=== PATIENT | male | born 1945 | race Caucasian/White ===

== ENCOUNTER 2016-12-18 10:41 | Outpatient (CLI) | payer MEDICARE, OTHER ==
[2016-12-18 12:01] LABS: #Basophils 0.1 thou/uL (0.0-0.2); #Eosinphils 0.2 thou/uL (0.0-0.7); #Lymphocytes 1.7 thou/uL (1.20-3.40); #Monocytes 0.7 thou/uL (0.11-0.59); #Neutrophils 6.9 thou/uL (1.40-6.50); %Basophils 0.7 % (0.0-1.0); %Eosinophils 1.6 % (0.0-10.0); %Monocytes 7.4 % (0.0-10.0); Hematocrit 42.6 % (42.0-52.0); Mean Platelet Volume 6.1 fL (7.4-10.4); Red Blood Cell (RBC) Count 4.51 mill/uL (4.70-6.10); White Blood Cell (WBC) Count 9.4 thou/uL (4.8-10.8)
[2016-12-18 12:28] LABS: ALT (SGPT) 40 U/L (0-55); AST (SGOT) 25 U/L (5-34); Alkaline Phosphatase 75 U/L (40-150); Anion Gap 12 mmol/L (10-20); BUN (Urea Nitrogen) 11 mg/dL (8.4-25.7); Bilirubin, Total 0.8 mg/dL (0.2-1.2); Calc. Creatinine Clearance 0 mL/min (70-130); Calcium 9.1 mg/dL (7.8-10.44); Carbon Dioxide 23 mmol/L (23-31); Chloride 109 mmol/L (98-107); Estimated GFR-MDRD 89; Globulin 2.4 g/dL (2.4-3.5); LDL Cholesterol, Calculated 59 mg/dL; Protein, Total 6.3 g/dL (5.8-8.1)
[2016-12-18 12:30] LABS: Hemoglobin A1c 6.5 % (4.0-6.0)
== END 2016-12-18 10:42 ==
LOC: HPCALD 10:41
PROVIDERS: ATTEND Family Medicine
DX: Z12.5 Encounter for screening for malignant neoplasm of prostate (principal); E11.9 Type 2 diabetes mellitus without complications; I10 Essential (primary) hypertension; E78.00 Pure hypercholesterolemia, unspecified
CPT/HCPCS: 36415; 80053; 80061; 83036; 85025; G0103

== ENCOUNTER 2017-06-22 11:49 | Outpatient (CLI) | payer MEDICARE ==
[2017-06-22 12:46] LABS: #Basophils 0.1 thou/uL (0.0-0.2); #Eosinphils 0.2 thou/uL (0.0-0.7); #Lymphocytes 2.6 thou/uL (1.20-3.40); #Monocytes 0.5 thou/uL (0.11-0.59); #Neutrophils 4.6 thou/uL (1.40-6.50); %Basophils 0.9 % (0.0-1.0); %Eosinophils 2.2 % (0.0-10.0); %Lymphocytes 32.2 % (21.0-51.0); %Monocytes 6.7 % (0.0-10.0); Hemoglobin 15.8 g/dL (14.0-18.0); Mean Corpuscular HGB CONC 34.9 g/dL (32.0-36.0); Mean Corpuscular Hemoglobin 32.5 pg (27.0-31.0); Mean Corpuscular Volume 93.1 fl (80.0-94.0); Platelet Count 226 thou/uL (130-400); RBC Distribution Width 11.6 % (11.5-14.5); Red Blood Cell (RBC) Count 4.85 mill/uL (4.70-6.10)
[2017-06-22 12:53] LABS: ALT (SGPT) 34 U/L (8-55); AST (SGOT) 20 U/L (5-34); Albumin 4.2 g/dL (3.4-4.8); Alkaline Phosphatase 81 U/L (40-150); Anion Gap 16 mmol/L (10-20); BUN (Urea Nitrogen) 23 mg/dL (8.4-25.7); Bilirubin, Total 0.8 mg/dL (0.2-1.2); Calc. Creatinine Clearance 0 mL/min (70-130); Calcium 9.5 mg/dL (7.8-10.44); Carbon Dioxide 22 mmol/L (23-31); Cardiac Risk 3.2 (Less than 4.5); Chloride 104 mmol/L (98-107); Cholesterol 107 mg/dl (< 200 Desired); Estimated GFR-MDRD 69; Globulin 2.6 g/dL (2.4-3.5); Glucose 244 mg/dL (83-110); HDL Cholesterol 33 mg/dL (>60 Neg Risk); LDL Cholesterol, Calculated 55 mg/dL; Potassium 4.5 mmol/L (3.5-5.1); Protein, Total 6.8 g/dL (5.8-8.1); Sodium 137 mmol/L (136-145); Triglycerides 95 mg/dL (Less than 150)
[2017-06-22 13:09] LABS: Hemoglobin A1c 8.4 % (4.0-6.0)
== END 2017-06-22 11:50 | disposition home or self-care (01) ==
LOC: HPCALD 11:49
PROVIDERS: ATTEND Family Medicine
DX: E78.5 Hyperlipidemia, unspecified (principal); E11.9 Type 2 diabetes mellitus without complications; I10 Essential (primary) hypertension
CPT/HCPCS: 36415; 80053; 80061; 83036; 85025

== ENCOUNTER 2018-10-23 02:57 | Emergency (ER) | payer MEDICARE ==
[2018-10-23 03:51] LABS: #Basophils 0.1 thou/uL (0.0-0.2); #Eosinphils 0.1 thou/uL (0.0-0.7); #Lymphocytes 2.3 thou/uL (1.20-3.40); #Monocytes 0.6 thou/uL (0.11-0.59); #Neutrophils 6.1 thou/uL (1.40-6.50); %Lymphocytes 24.9 % (21.0-51.0); %Monocytes 6.6 % (0.0-10.0); %Neutrophils 66.5 % (42.0-75.0); Hemoglobin 16.1 g/dL (14.0-18.0); Mean Corpuscular HGB CONC 34.8 g/dL (32.0-36.0); Mean Corpuscular Hemoglobin 31.1 pg (27.0-31.0); Mean Corpuscular Volume 89.4 fL (78.0-98.0); Mean Platelet Volume 6.6 fL (7.4-10.4); Platelet Count 230 thou/uL (130-400); RBC Distribution Width 11.8 % (11.5-14.5); Red Blood Cell (RBC) Count 5.17 mill/uL (4.70-6.10); White Blood Cell (WBC) Count 9.2 thou/uL (4.8-10.8)
[2018-10-23 04:00] LABS: ALT (SGPT) 36 U/L (8-55); AST (SGOT) 24 U/L (5-34); Albumin 4.1 g/dL (3.4-4.8); Alkaline Phosphatase 80 U/L (40-150); Anion Gap 13 mmol/L (10-20); BUN (Urea Nitrogen) 15 mg/dL (8.4-25.7); Bilirubin, Total 0.6 mg/dL (0.2-1.2); Calc. Creatinine Clearance 0 mL/min (70-130); Calcium 9.6 mg/dL (7.8-10.44); Carbon Dioxide 23 mmol/L (23-31); Chloride 106 mmol/L (98-107); Estimated GFR-MDRD 87; Globulin 2.9 g/dL (2.4-3.5); Glucose 163 mg/dL (83-110); Sodium 138 mmol/L (136-145)
--- NOTE | 2018-10-23 08:58 | CT ---
PRELIMINARY REPORT/[facility]/EMERGENTY AFTER-HOURS PROCEDURE CT Head Without Contrast EXAM DATE/TIME: 10/23/2018 3:38 AM CLINICAL HISTORY: 73 years old, male; Signs and symptoms; Altered mental status/memory loss; Patient HX: Woke up confus ed scan x 2 motion TECHNIQUE: Axial computed tomography images of the head/brain without contrast. All CT scans at this facility use at least one of these dose optimization techniques: automated expos ure control; mA and/or kV adjustment per patient size (includes targeted exams where dose is matched to clinical indication); or iterative reconstruction. STROKE PROTOCOL was implemented. COMPARISON: No relevant prior studies available. FINDINGS: Brain: There is no evidence for acute stroke or bleed. There are scattered foci of decreased attenuation in the periventricular and subcortical white matter, nonspecific, but most consistent with chronic small vessel ischemic changes in patient of this age. Dense, 3.0 x 7.3 cm anterior falcine calcification, perhaps meningioma. Ventricles / cisterns / extra-axial spaces: There is no hydrocephalus, midline shift, or acute extra-axial fluid collection. There is no sulcal e ffacement. Sinuses: No findings of acute sinusitis or suspicious sinus mass. Bone: No acute fracture or displacement. Impression: Chronic changes without evidence for acute, intracranial pathology. Dense anterior falcine calcification, perhaps meningioma. Thank you for allowing us to participate in the care of your patient. Dictated and Authenticated by: Ute Puentes MD 10/23/2018 3:52 AM Central Time ([place] & [place]) CT HEAD NONCONTRAST: Date: 10-23-18 Performed on emergency basis at 0340 hours. History: Altered mental status. Memory loss. FINDINGS: Agree with the preliminary report by from [facility]. Chronic type findings. No acute intr acranial abnormalities are demonstrated on noncontrast CT head. Code QA POS: [facility]
== END 2018-10-23 04:30 | disposition home or self-care (01) ==
LOC: BURERS 02:57
DX: G40.909 Epilepsy, unspecified, not intractable, without status epilepticus (principal); G45.9 Transient cerebral ischemic attack, unspecified; E11.9 Type 2 diabetes mellitus without complications; E78.5 Hyperlipidemia, unspecified; I10 Essential (primary) hypertension; Z79.899 Other long term (current) drug therapy; Z79.84 Long term (current) use of oral hypoglycemic drugs
CPT/HCPCS: 70450; 80053; 84146; 84484; 85025

== ENCOUNTER 2019-10-04 11:41 | Emergency (ER) | payer MEDICARE ==
--- NOTE | 2019-10-04 12:33 | RAD ---
RIGHT KNEE 4 VIEWS: DATE: 10/04/2019. FINDINGS: No acute fracture was seen. There are severe degenerative changes in the knee joint with medial join t space narrowing, large osteophytes, and some cartilaginous and meniscal calcifications. The patell ofemoral joints show severe arthritic change as well. There is probably a small joint effusion prese nt. A hair from prior fixation of a femoral fracture is noted. IMPRESSION: Severe degenerative change, but no acute findings, other than perhaps a very small joint effusion. POS: HOME
== END 2019-10-04 12:38 | disposition home or self-care (01) ==
LOC: BURERS 11:41
DX: S80.01XA Contusion of right knee, initial encounter (principal); S60.512A Abrasion of left hand, initial encounter; N40.0 Benign prostatic hyperplasia without lower urinary tract symptoms; M10.9 Gout, unspecified; E11.9 Type 2 diabetes mellitus without complications; E78.5 Hyperlipidemia, unspecified; I10 Essential (primary) hypertension; Z79.899 Other long term (current) drug therapy; Z79.84 Long term (current) use of oral hypoglycemic drugs; W17.89XA Other fall from one level to another, initial encounter

== ENCOUNTER 2019-11-15 23:21 | Emergency (ER) | payer MEDICARE ==
[2019-11-15] MEDS ORDERED: Adacel (T-DAP) 0.5 ML SYRINGE ONE (23:45)
[2019-11-15] MEDS ORDERED: Bacitracin 1 PK ONE (23:46)
[2019-11-16] MEDS ORDERED: Bacitracin 1 PK ONE (00:14)
== END 2019-11-16 00:35 | disposition home or self-care (01) ==
LOC: BURERS 23:21
DX: T23.032A Burn of unspecified degree of multiple left fingers (nail), not including thumb, initial encounter (principal); T24.011A Burn of unspecified degree of right thigh, initial encounter; T31.0 Burns involving less than 10% of body surface; E78.5 Hyperlipidemia, unspecified; I10 Essential (primary) hypertension; E11.40 Type 2 diabetes mellitus with diabetic neuropathy, unspecified; Z23 Encounter for immunization; Z79.899 Other long term (current) drug therapy; Z79.84 Long term (current) use of oral hypoglycemic drugs; X10.0XXA Contact with hot drinks, initial encounter
CPT/HCPCS: 16020; 90471; 90715